=== PATIENT | female | born 1950 | race Hispanic/Latino ===

== ENCOUNTER 2019-02-06 09:14 | Emergency (ER) | payer MEDICARE, BC ==
[~2019-02-06] VITALS: Ht 162.6 cm; Wt 90.7 kg
--- OUTSIDE RECORDS SUMMARY | 2019-02-06 09:17 | XMS REPORT | Summary of Care ---
Author Author DESIREE GOMEZ M.D. Organization Unknown Address Unknown Phone Unavailable Care Team Providers Care Radio Interference Investigator Name Role Phone DESIREE GOMEZ M.D. Unavailable Unavailable JATIN LAGUNA, DANUTA Odell Unavailable Unavailable Unavailable Unavailable Functional Status Name Dates Details Functional status health issues are not documented Status: Name Dates Details Cognitive status health issues are not documented Status: Problems Name Dates Details Chest discomfort (786.59, R07.89) Status: Active Hypertension (401.9, I10) Status: Active Intermittent palpitations (785.1, R00.2) Status: Active Leg swelling (729.81, M79.89) Status: Active Normal routine physical examination (V70.0, Z00.00) Status: Active Medications Name Dates Details Citalopram Hydrobromide 20 MG Oral Tablet TAKE 1 TABLET DAILY. * Start : 18-Dec-2015 Active Zolpidem Tartrate 10 MG Oral Tablet TAKE 1 TABLET AT BEDTIME NEEDED. * Refills: 0 * Start : 18-Dec-2015 Active Atenolol 25 MG Oral Tablet TAKE 1 TABLET DAILY. * Refills: 0 DESIREE GOMEZ M.D. 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: Resolved Procedures Procedure Dates Details History of Cholecystectomy Completed History of Back Surgery Completed Immunization Name Dates Details Immunizations not documented Family History Name Dates Details Family history of hypertension (V17.49, Z82.49) Comments: Family History Status: Active Name Dates Details Family history of malignant neoplasm (V16.9, Z80.9) Status: Active Family history of diabetes mellitus (V18.0, Z83.3) Status: Active Social History Name Dates Details - Status: Name Dates Details Never smoker Vital Signs Date Test Result Details [id number] BP Systolic 131 mm[Hg] Status: BP Diastolic 75 mm[Hg] Status: Height 64 in Status: Weight 205 lb Status: Body Mass Index Calculated 35.19 kg/m2 Status: Body Surface Area Calculated 1.98 m2 Status: Heart Rate 49 /min Status: Results Date Description Value Details Results not documented Plan of Care Name Dates Details Planned Observations Planned Goals not documented Planned Encounters Appointment; DESIREE GOMEZ M.D. On: 18-May-2018 11:00 Interventions Provided Instructions* Patient Specific Education Given; Done: 18 Jan 2018 Plan* 1. HTN * - Atenolol 50mg bid * 2.DLP * - LDL 104 mg/dl as * 3. CP * - non specific changes in EKG * - Negative LEXIMIBI * 4. Follow up in 4 mos w reduced atenolol * - regular Discussion/Summary* Clinical cardiac findings reviewed and discussed * EKG reviewed and discussed Instructions Name Dates Details Instructions not documented Encounters Appointment; DESIREE GOMEZ M.D. Encounter Diagnosis: Problem not documented On: 31-Jan-2016 9:00 Appointment; DESIREE GOMEZ M.D. Encounter Diagnosis: Problem not documented On: 18-Jan-2018 10:00
[2019-02-06] MEDS ORDERED: FAMOTIDINE 20 MG/2 ML VIAL IV NR (09:45)
[2019-02-06] MEDS ORDERED: SODIUM CHLORIDE 0.9% 1000ML 1,000 ML IV SCH (09:45)
[2019-02-06] MEDS ORDERED: DIPHENHYDRAMINE HCL INJ 50 MG/ML VIAL IV NR (09:45)
[2019-02-06] MEDS ORDERED: METHYLPREDNISOLONE SOD SUCC 125 MG/2ML VIAL IV ONE (09:45)
[2019-02-06 10:57] LABS: BASOPHILS % 0.5 % (0.0-1.0); EOSINOPHILS # (AUTO) 0.1 (0.0-0.4); EOSINOPHILS % 2.1 % (0.0-6.0); HEMATOCRIT 40.9 % (34.2-44.1); HEMOGLOBIN 13.7 g/dL (12.0-16.0); LYMPHOCYTES # (AUTO) 1.5 (1.0-3.2); LYMPHOCYTES % 24.1 % (18.0-39.1); MEAN CORPUSCULAR HGB CONC 33.5 g/dL (31-35); MEAN CORPUSCULAR VOLUME 89.7 fL (81-99); MONOCYTES # (AUTO) 0.5 (0.2-0.8); MONOCYTES % 7.4 % (4.4-11.3); NEUTROPHILS % 65.6 % (38.7-80.0); PLATELET COUNT 184 x10e3/uL (140-360); RED BLOOD COUNT 4.56 x10e6/uL (3.6-5.1); RED CELL DISTRIBUTION WIDTH 12.5 % (11.7-14.4)
[2019-02-06 11:16] LABS: ALANINE AMINOTRANSFERASE 33 IU/L (0-55); ALBUMIN 3.6 g/dL (3.5-5.0); ALBUMIN/GLOBULIN RATIO 1.2 (0.8-2.0); ALKALINE PHOSPHATASE 79 IU/L (40-150); BLOOD UREA NITROGEN 14 mg/dL (7-26); BUN/CREATININE RATIO 20 (6-25); CALCIUM 9.5 mg/dL (8.4-10.2); CARBON DIOXIDE 29 mmol/L (22-29); CHLORIDE 104 mmol/L (98-107); EST GLOMERULAR FILTRATION RATE > 60 ML/MIN (60-); GLUCOSE 127 mg/dL (74-118); SODIUM 139 mmol/L (136-145)
--- NOTE | 2019-02-06 11:54 | NUR ---
STILL WAITING ON CHEMISTRIES, LAB CALLED
== END 2019-02-06 12:38 | disposition home or self-care (01) ==
LOC: ER 09:14
DX: T78.40XA Allergy, unspecified, initial encounter (principal); I10 Essential (primary) hypertension; E11.9 Type 2 diabetes mellitus without complications; F32.9 Major depressive disorder, single episode, unspecified
CPT/HCPCS: 36415; 80053; 85025; 99283; J1200; J2930; J7030

== ENCOUNTER 2024-08-17 19:50 | Emergency (ER) | payer MEDICARE ==
[~2024-08-17] VITALS: Ht 162.6 cm; Wt 84.8 kg
[~2024-08-17 19:50] MED LIST: CIPRO500 MG PO; CITALOPRAM HBR30 MG; LOSARTAN POTASS25 MG PO; METFORMIN HCL500 M1 PO; PYRIDIUM100 MG PO; ZOLPIDEM TARTRAT5 MG PO
[2024-08-17] MEDS: ACETAMINOPHEN 325 MG TAB PO ONE (21:04)
[2024-08-17] MEDS: AMOXICILLIN/CLAVULANATE K 875 MG TAB PO STA (21:04)
[2024-08-17] MEDS ORDERED: IOPAMIDOL 370 MG/ML 100 ML INFUS..BTL INJ ONE (23:24)
[2024-08-18] MEDS ORDERED: CIPROFLOX-DEXA7.5 ML EACH EAR (00:33)
[2024-08-18] MEDS ORDERED: AMOX TR-K CLV1 EAC2 PO (00:33)
[2024-08-18 00:45] VITALS: PULSE 88; RESP 18; TEMP 98.2
[2024-08-18 00:59] VITALS: BP 147/87; PULSE 87; RESP 18; TEMP 98.2; O2SAT 98
== END 2024-08-18 00:52 | disposition home or self-care (01) ==
LOC: FSED 19:53
DX: R50.9 Fever, unspecified (principal); H66.91 Otitis media, unspecified, right ear; H60.91 Unspecified otitis externa, right ear; I10 Essential (primary) hypertension; E11.65 Type 2 diabetes mellitus with hyperglycemia; R05.9 Cough, unspecified; R09.89 Other specified symptoms and signs involving the circulatory and respiratory systems
CPT/HCPCS: 70487; 71046; 99284; Q9967